=== PATIENT | female | born 1945 | race Caucasian/White ===

== ENCOUNTER 2018-07-03 18:01 | Emergency (ER) | payer OTHER ==
--- NOTE | 2018-07-03 20:16 | EDPHY ---
General - History Smoking Status: Never smoked Time Seen by Provider: 07/03/18 18:45 Narrative: CHIEF COMPLAINT: Fall, head injury HISTORY OF PRESENT ILLNESS: Patient presents by private vehicle with complaints of fall and head injury. She says "she was stupid, I tripped on a sidewalk." She states this happened just prior to arrival. Her son at bedside reports that he turned around when she order fall. She landed on her face, striking her right forehead. Questionable brief loss of consciousness. She has a moderate headache that is worse with palpation and movement. Improved at rest. Does not radiate. She has a laceration over the right eyebrow. She has no nausea vomiting. No visual disturbance but no neck pain or stiffness. No numbness tingling or weakness anywhere on her person. She has no chest, back or abdominal pain. She has been ambulatory without difficulty. No use of anticoagulants. Currently visiting. No other associated complaints or modifying factors. REVIEW OF SYSTEMS: 10 systems were reviewed and negative with the exception of the elements mentioned in the history of present illness. PCP: Located [place], [place]. SPECIALISTS: None currently PAST MEDICAL HISTORY: Osteoarthritis No medications. ANTICOAGULATED: No use of anticoagulants PAST SURGICAL HISTORY: Status post hip arthroplasty last year SOCIAL HISTORY: Never smoker. Lives independently with her spouse. Currently visiting until Sunday FAMILY HISTORY: Noncontributory EXAMINATION: General Appearance: Alert, no distress Head: normocephalic. Moderate swelling ecchymosis with the right eyelid and right periorbital region. No bruising behind the ears. No drainage from the ears or nose. No depression. Laceration of the right eyebrow as below. Eyes: 3 cm laceration of the right eyebrow without involvement of the eyelid. Pupils equal and round, no conjunctival pallor or injection. EOM symmetric. There is no hyphema or subconjunctival hemorrhage. ENT, Mouth: Mucous membranes moist Neck: Normal inspection, supple, non-tender no crepitus or deformity. Respiratory: Lungs are clear to auscultation Cardiovascular: Regular rate and rhythm Gastrointestinal: Abdomen is soft and nontender Back: non-tender, no bony abnormalities Neurological: Cranial nerves 2-12 grossly intact. GCS 15. A&O, nonfocal, normal gait. Light sensory symmetric in the upper lower extremities. Strength is 5/5 and symmetric in the upper lower extremities. Skin: Warm and dry, no rash. Laceration as above. Extremities: Nontender, no pedal edema. Full and symmetric range of motion upper lower extremities. All compartments are soft in lower extremities. Psychiatric: Mood and affect normal DIFFERENTIAL DIAGNOSES: Including but not limited to frontal fracture, eyebrow laceration, intracranial hemorrhage, intraparenchymal hemorrhage, concussion, cervical sprain, cervical strain MDM: 6:45 p.m. Mechanical fall from standing height with closed head injury and right eyebrow laceration. She has some moderate ecchymosis and swelling to the right eyelid and right upper eyelid but no formal signs of basilar skull fracture. Possible brief loss of consciousness. She is awake alert. No acute distress. Neuro exam is fully intact. She has no signs of trauma elsewhere. Tetanus up-to- date. Laceration will require repair. Given her age over 67, I do feel she meets criteria for CT scan of the head. She is in no acute distress. 7:30 p.m. Notified by radiologist. CT scans of the head and cervical spine reveal no acute findings. Degenerative changes of the cervical spine noted. 7:50 p.m. Patient re-evaluated. I discussed the negative CT scan of the head. I discussed the chronic, degenerative changes of the cervical spine. Laceration has been copiously irrigated and I have re-evaluated. She continues to feel well with mild headache. I have ordered Tylenol. I have been able to close the wound without difficulty as below. We discussed wound care. We discussed head injury precautions. We discussed ice and elevation of her head of bed. Patient will be discharged in stable condition. She will follow up with primary care physician upon return home back to [facility] next week. We discussed suture removal in 7 days. We discussed ED precautions. She is comfortable this plan and discharged home stable condition. PROCEDURE: Laceration repair Consent: Verbal Location: Right forehead/eyebrow Length of repair: 3 cm Complexity: Simple Layer involvement: Single Anesthesia: Local. 0.25% Marcaine with epinephrine, 7 mL Irrigation: Extensive Debridement: None Procedure description: Following good anesthesia, the wound was copiously irrigated. Wound bed was explored with a sterile glove, and there is no foreign body noted. No injury to the galea or frontalis muscle. No debris. Wound borders were approximated well with good hemostasis. Tolerated well without complication. Suture/Staple material: 5-0 prolene, 4 simple interrupted sutures. Wound care: Routine as discussed Suture/Staple removal: 7 Days SUPERVISION: This patient was independently evaluated without direct involvement of or examination by the attending physician. CONSULTATION: None (Tucker Avila) Medical Decision Making: I did not see this patient while she was in the emergency department. However her care was discussed with the PA while the patient was in the department. I agree with treatment plan and management (Guanako Watt) - Objective Vital Signs: Initial Vital Signs Temperature (C) 36.6 C 07/03/18 18:09 Heart Rate 76 07/03/18 18:09 Respiratory Rate 18 07/03/18 18:09 Blood Pressure 154/89 H 07/03/18 18:09 O2 Sat (%) 96 07/03/18 18:09 O2 Delivery Mode Room Air Allergies/Adverse Reactions: No Known Allergies Allergy (Unverified 07/03/18 18:14) Home Medications: Medication Instructions Recorded NK [No Known Home Meds] 07/03/18 Medications Given: Discontinued Medications Acetaminophen (Tylenol) 650 mg PO EDNOW ONE Stop: 07/03/18 20:18 Last Admin: 07/03/18 20:37 Dose: 650 mg Departure - Departure Disposition: Home, Routine, Self-Care Clinical Impression: Closed head injury, Fall from standing, Laceration of eyebrow, right Condition: Good Instructions: Care For Your Stitches (ED), Laceration (ED), Facial Laceration ( ED) Additional Instructions: 1. Thin layer of bacitracin once daily for the next 2 days 2. Keep the wound covered while showering for the next 3 days 3. Daily wound care as discussed 4. Follow up with your primary care physician or urgent care in 7 days for suture removal 5. Return here for signs of infection as discussed including warmth, redness, fever, drainage from the site 6. return here for increasing pain surrounding the laceration 7. Do not submerge the wound in any water, hot tub, swimming pool until sutures removed 8. Tylenol 650 mg every 6 hr as needed for headache 9. Ibuprofen 400 mg every 6 hours as needed for headache 2. ED precautions as discussed and demonstrated Referrals: LAURA ORTEGA MD [Other] - As per Instructions
[2018-07-03] MEDS ORDERED: ACETAMINOPHEN 325 MG TAB PO ONE (20:17)
[2018-07-03 20:56] VITALS: BP 144/95
== END 2018-07-03 20:50 | disposition home or self-care (01) ==
PROC: 08QPXZZ Repair Left Upper Eyelid, External Approach (ICD-10-PCS; principal; 2018-07-03)
DX: S09.90XA Unspecified injury of head, initial encounter (principal); S01.111A Laceration without foreign body of right eyelid and periocular area, initial encounter; W19.XXXA Unspecified fall, initial encounter; Y92.9 Unspecified place or not applicable; Y93.9 Activity, unspecified